=== PATIENT | male | born 1965 | race Caucasian/White ===

== ENCOUNTER 2018-06-07 15:39 | Emergency (ER) | payer OTHER ==
[2018-06-07 15:50] VITALS: BP 145/92
--- NOTE | 2018-06-07 15:57 | ED HAND/WRIST INJURY COMPLAINT ---
History of Present Illness General Chief Complaint: Laceration Procedure Stated Complaint: LAC TO R FOREARM Source: patient Exam Limitations: no limitations Vital Signs & Intake/Output Vital Signs & Intake/Output Vital Signs Date Time Temp Pulse Resp B/P B/P Pulse O2 O2 Flow FiO2 Mean Ox Delivery Rate 06/07 1550 97.1 99 17 145/92 99 Room Air Allergies Coded Allergies: No Known Allergies (06/07/18) Triage Note: PT TO ED WITH C/O "PUNCTURE LIKE" LACERATIONS TO RIGHT FOREARM SUSTAINED BY SAW WHILE SAWING A DOWNED TREE. BELIEVES TETANUS IS UPD. STATES HE THINKS HE KNICKED A VEIN BLEEDING WOULD NOT STOP. PRESSURE WRAP IN PLACE FROM EMS. Triage Nurses Notes Reviewed? yes Occurred: just prior to arrival Duration: minute(s): Timing: single episode today Injury Environment: home Severity: mild, moderate Pain/Injury Location: Right: Wrist. Method of Injury: direct blow No Modifying Factors: none HPI: 53-year-old male comes into the emergency room for further evaluation of bleeding to right wrist. Patient reports that he was cutting down a tree and when the branch fell and bumped against a solid which then fell onto his right wrist and punctured of pain on his wrist. He reports that the bleeding would not stop so he had a call the ambulance. The ambulance came and wrapped it. He then went to the walk-in clinic who then told him to come to the ER for further evaluation. He's got some associated tingling and numbness to his first and second finger going down into his hand. Denies any other associated symptoms. (Placido Llamas) Past History Travel History Traveled to [place] past 21 day No Medical History Any Pertinent Medical History? see below for history Respiratory: asthma Surgical History Surgical History: non-contributory Psychosocial History What is your primary language [place] Tobacco Use: Never used Family History Hx Contributory? No (Placido Llamas) Review of Systems Review of Systems Constitutional: Reports: no symptoms. EENTM: Reports: no symptoms. Respiratory: Reports: no symptoms. Cardiovascular: Reports: no symptoms. GI: Reports: no symptoms. Genitourinary: Reports: no symptoms. Musculoskeletal: Reports: see HPI. Skin: Reports: see HPI. Neurological/Psychological: Reports: no symptoms. Hematologic/Endocrine: Reports: no symptoms. Immunologic/Allergic: Reports: no symptoms. All Other Systems: Reviewed and Negative (Placido Llamas) Physical Exam Physical Exam General Appearance: well developed/nourished, mild distress Head: atraumatic Eyes: Bilateral: normal appearance. Ears, Nose, Throat: normal ENT inspection, hearing grossly normal Neck: normal inspection Cardiovascular/Respiratory: no respiratory distress Back: normal inspection Wrist Right: small puncture to wrist, no active bleeding, pulses intact Hand Left: normal inspection Hand Right: normal inspection Neurologic/Tendon: normal motor functions, normal tendon functions, responds to pain, no evidence tendon injury, no pulse deficit Skin: intact, normal color, warm/dry (Placido Llamas) Progress Differential Diagnosis: fracture, soft tissue foreign body, pain rupture, arterial laceration, Plan of Care: 06/07/2018 4:29:41 PM No active bleeding. Nothing suturable on exam. Tetanus shot up-to-date. Pulses intact. Customer Experience Consultant strength intact and motor intact. Irrigated with peroxide and tap water. Dressed. Patient was able to be discharged from triage. No active bleeding. Patient understands and agrees with plan of care. (Placido Llamas) Departure Departure Disposition: HOME OR SELF CARE Condition: Stable Clinical Impression Primary Impression: Puncture wound of wrist Additional Instructions: Keep dressing in place for 2 days. Return if any other concerns worsening symptoms. Return if any recurrent bleeding. If numbness or tingling is persisting after one week follow-up with PCP. Please go over all results of today's visit with your primary care doctor. Contact your primary care doctor to let them know you were here in the emergency room. There may be nonspecific findings which may not be related to your visit today here in the emergency room but may require further evaluation and chronic monitoring by your primary care doctor. If you had a laceration today the chance of foreign body always remains. You should follow-up with your primary care doctor for recheck in 3-5 days for a wound check. If you had an x-ray done there is a chance that a fracture could have been missed on initial read and you should follow-up with your primary care doctor for repeat x-rays if symptoms persist. If your blood pressure was elevated here in the emergency room please have rechecked by [facility] primary care doctor within the next 48. If you were prescribed a narcotic here in the emergency room or any type of controlled substances you're not allowed to drive while taking this medication or operate any type of heavy machinery. Narcotics can make you feel lightheaded dizziness nausea and can cause constipation. You may need to metal pickling equipment operator a stool softener. Thank you for choosing [facility] emergency room. Please return to the emergency room immediately if you have any other concerns worsening of symptoms. Departure Forms: Customer Survey General Discharge Information (Placido Llamas) PA/AUGER OPERATOR Co-Sign Statement Statement: ED Attending supervision documentation- [] I saw and evaluated the patient. I have also reviewed all the pertinent lab results and diagnostic results. I agree with the findings and the plan of care as documented in the PA's/AUGER OPERATOR's documentation. [x] I have reviewed the ED Record and agree with the PA's/AUGER OPERATOR's documentation. [] Additions or exceptions (if any) to the PAs/AUGER OPERATOR's note and plan are summarized below: [] (Zane Cabello DO)
== END 2018-06-07 16:05 ==
LOC: ERH 15:39
DX: S61.531A Puncture wound without foreign body of right wrist, initial encounter (principal); W45.8XXA Other foreign body or object entering through skin, initial encounter; Y93.89 Activity, other specified
CPT/HCPCS: 99282